=== PATIENT | female | born 1995 | race Caucasian/White ===

== ENCOUNTER 2017-10-04 09:40 | Emergency (ER) | payer BC ==
[~2017-10-04] VITALS: Ht 157.5 cm; Wt 63.0 kg
[~2017-10-04 09:40] MED LIST: BACTRIM DS1 TAB PO; NAPROSYN500 MG PO; NEXPLANON68 MG SC; NORCO1 TA2 PO; PRENATA6 PO
[2017-10-04 10:39] LABS: INFLUENZA A NONE DETECTED (NONE DETECT); INFLUENZA B NONE DETECTED (NONE DETECT)
[2017-10-04] MEDS ORDERED: AMOXICILLIN500 M2 PO (10:42)
[2017-10-04 10:50] VITALS: BP 129/77
== END 2017-10-04 10:50 | disposition home or self-care (01) | DRG 153 ==
LOC: ED 09:40
PROVIDERS: Family Medicine
DX: J06.9 Acute upper respiratory infection, unspecified (principal); R05 Cough; R09.81 Nasal congestion; R09.89 Other specified symptoms and signs involving the circulatory and respiratory systems

== ENCOUNTER 2023-04-10 11:19 | Emergency (ER) | payer MEDICAID ==
[~2023-04-10] VITALS: Ht 157.5 cm; Wt 72.5 kg
[~2023-04-10 11:19] MED LIST changes: +AMOXICILLIN500 M2 PO
[2023-04-10 12:51] LABS: BASO% 0.4 % (0-3); EOS% 0.2 % (0-8); HEMATOCRIT 44.4 % (37.0-47.0); HEMOGLOBIN 14.6 g/dl (12.0-16.0); IMMATURE GRANULOCYTES 0.3 % (0.0-5.0); LYMPH% 12.3 % (15-41); MEAN CELL VOLUME 89.2 fL CALC (80.0-100.0); MEAN CORPUSCULAR HGB 29.3 pG CALC (26.0-32.0); MEAN CORPUSCULAR HGB CONC 32.9 g/dL CAL (32.0-36.0); MONO% 3.7 % (2-13); NEUT# 9.59 thou/uL (2.00-7.15); NEUT% 83.1 % (42-76); RED BLOOD COUNT 4.98 mill/uL (4.20-5.60)
[2023-04-10 12:55] LABS: URINE BILIRUBIN - DIPSTICK Negative (NEGATIVE); URINE BLOOD DIPSTICK Large (NEGATIVE); URINE GLUCOSE - DIPSTICK Negative (NEGATIVE); URINE KETONE Negative (NEGATIVE); URINE LEUK ESTERASE Negative (NEGATIVE); URINE NITRITE - DIPSTICK Negative (Negative); URINE PH >=9.0 (4.5-8.0); URINE PROTEIN - DIPSTICK 30 mg/dL (NEG-TRACE); URINE SPECIFIC GRAVITY 1.015; URINE UROBILINOGEN - DIPSTICK 0.2 E.U./dL (0.2)
[2023-04-10 12:59] LABS: URINE COLOR Yellow
[2023-04-10 13:01] LABS: ALBUMIN 4.4 g/dL (3.2-5.0); ALKALINE PHOSPHATASE 65 u/l (38-126); ANION GAP 14 (6-22 (CALC)); BILIRUBIN, TOTAL 0.5 mg/dL (0.02-1.3); BUN 8 mg/dL (7-17); BUN/CREATININE RATIO 14 (12-20 (CALC)); CARBON DIOXIDE 24 mmol/l (22-30); CHLORIDE 107 mmol/l (95-108); CREATININE 0.6 mg/dL (0.5-1.0); GFR FOR AFR.AMER. > 60 ML/MIN (>=60 (CALC)); GFR OTHER RACES > 60 ML/MIN (>=60 (CALC)); POTASSIUM 3.9 mmol/l (3.5-5.1); SGOT/AST 32 u/l (14-36); SODIUM 141 mmol/l (137-146); TOTAL PROTEIN 7.8 g/dL (6.3-8.2)
[2023-04-10 13:07] LABS: URINE RBC 0-2 RBC/hpf (0-5); URINE SQUAMOUS EPITHELIAL CELL FEW EPI/hpf (0-FEW); URINE WBC 0-2 WBC/hpf (0-5)
[2023-04-10] MEDS ORDERED: ZOFRAN4 MG/TAB PO (15:14)
[2023-04-10] MEDS ORDERED: NAPROXEN500 MG PO (15:14)
[2023-04-10 15:29] VITALS: BP 138/89
== END 2023-04-10 15:36 | disposition home or self-care (01) ==
LOC: ED 11:19
PROVIDERS: Nurse Practitioner
DX: R10.9 Unspecified abdominal pain (principal)
CPT/HCPCS: Q9967